=== PATIENT | male | born 1960 | race Caucasian/White ===

== ENCOUNTER 2018-11-13 12:22 | Emergency (ER) | payer BC ==
[2018-11-13] MEDS ORDERED: Bupivacaine 0.5% W/EPI SDV* 30 ML VIAL INJ ONE (14:01)
[2018-11-13] MEDS ORDERED: Lidocaine 2% EPI 1:200000 MPF* 10 ML VIAL INJ ONE (14:01)
[2018-11-13] MEDS ORDERED: Lidocaine 2% EPI 1:200000 MPF*10-20 ML VIAL ONE (14:03)
--- NOTE | 2018-11-13 14:09 | ED ---
Laceration/Wound HPI - HPI Summary HPI Summary: This patient is a 58 year old M presenting to [facility] accompanied by a woman with a chief complaint of laceration to the right middle finger with a table saw since just [employer]. The bleeding was controlled upon entrance to the ED. His last tetanus was last year. The patient states that he is in little pain with it wrapped on his hand, 3/10 in severity. - History of Current Complaint Stated Complaint: RT MID FINGER LACERATION Time Seen by Provider: 11/13/18 13:58 Hx Obtained From: Patient Onset/Duration: Sudden Onset Onset Severity: Moderate Current Severity: Mild Pain Intensity: 3 Pain Scale Used: 0-10 Numeric - Allergy/Home Medications Allergies/Adverse Reactions: Allergies Allergy/AdvReac Type Severity Reaction Status Date / Time Adhesive Tape Allergy Rash Verified 08/29/16 08:48 SEASONAL ALLERGY Allergy ITCHY Uncoded 08/29/16 08:48 WATERY EYES, PMH/Surg Hx/FS Hx/Imm Hx Endocrine/Hematology History: Reports: Hx Thyroid Disease - HYPOTHYROIDISM Denies: Hx Diabetes Cardiovascular History: Reports: Hx Hypertension - CONTROL WITH MEDS, Other Cardiovascular Problems/Disorders - CHOLESTEROL CONTROL WITH MEDS Denies: Hx Pacemaker/ICD Respiratory History: Reports: Hx Asthma - PRN INHALER Denies: Hx Chronic Obstructive Pulmonary Disease (COPD) GI History: Denies: Hx Ulcer History: Denies: Hx Renal Disease Musculoskeletal History: Reports: Hx Arthritis - GENERALIZED Sensory History: Reports: Hx Contacts or Glasses - GLASSES Denies: Hx Hearing Aid Opthamlomology History: Reports: Hx Contacts or Glasses - GLASSES Psychiatric History: Denies: Hx Panic Disorder - Surgical History Surgery Procedure, Year, and Place: 1976 APPENDECTOMY, [facility]. 1994 SINUS POLYPS REMOVED, [facility]. 1999 RIGHT KNEE ARTHROSCOPIC SURGERY REPAIR TORN MENISCUS , [facility]. VASECTOMY, OFFICE. 2013 COLONOSCOPY, [facility] Hx Anesthesia Reactions: No Infectious Disease History: No Infectious Disease History: Denies: Hx Clostridium Difficile, Hx Hepatitis, Hx Human Immunodeficiency Virus (HIV), Hx of Known/Suspected MRSA, Hx Shingles, Hx Tuberculosis, Traveled Outside the in Last 30 Days - Family History Known Family History: Positive: Non-Contributory - Social History Alcohol Use: Weekly Alcohol Amount: 6 PACK Substance Use Type: Reports: None Smoking Status (MU): Former Smoker Type: Cigarettes Amount Used/How Often: 1 PPD FOR APPROX 20 YEARS Length of Time of Smoking/Using Tobacco: 20 Have You Smoked in the Last Year: No Review of Systems Positive: Other - pain in the right hand from laceration Positive: Other - laceration on the right hand All Other Systems Reviewed And Are Negative: Yes Physical Exam - Summary Physical Exam Summary: Appearance: Well-appearing, Well-nourished, lying in bed comfortably Skin: Warm, dry, no obvious rash. Laceration on the right middle finger, partial evulsion of the fingertip. Eyes: sclera anicteric, no conjunctival pallor ENT: mucous membranes moist, pharynx appears normal Neck: Supple, nontender Respiratory: Clear to auscultation, no signs of respiratory distress Cardiovascular: Normal S1, S2. No murmurs. Normal distal pulses in tibial and radial bilaterally. Abdomen: Soft, nontender, normal active bowel sounds present Musculoskeletal: Normal, Strength/ROM Intact Neurological: A&Ox3, awake and alert, mentation is normal, speech is fluent and appropriate Psychiatric: affect is normal, does not appear anxious or depressed Triage Information Reviewed: Yes Vital Signs On Initial Exam: Initial Vitals Temp Pulse Resp BP Pulse Ox 98.1 F 85 18 146/93 96 11/13/18 12:30 11/13/18 12:30 11/13/18 12:30 11/13/18 12:30 11/13/18 12:30 Vital Signs Reviewed: Yes Procedures - Laceration/Wound Repair 1 Location: upper extremity - right hand, middle finger Length, Depth and Shape: digital block, 2+ dressing with zeroform Debridement: minimal Diagnostics - Vital Signs Vital Signs Temp Pulse Resp BP Pulse Ox 11/13/18 12:30 98.1 F 85 18 146/93 96 - Laboratory Lab Statement: Any lab studies that have been ordered have been reviewed, and results considered in the medical decision making process. 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 The bleeding was controlled upon entrance to the ED. His last tetanus was last year. The patient states that he is in little pain with it wrapped on his hand, 3/10 in severity. - Clinical Impression Provider Diagnoses: Traumatic amputation of fingertip Discharge - Sign-Out/Discharge Documenting (check all that apply): Patient Departure - discharge - Discharge Plan Condition: Good Disposition: HOME Patient Education Materials: Finger Amputation (ED) Referrals: Sunil Sarkar, HOME ORGANIZER [Primary Care Provider] - Additional Instructions: This wound should heal quite well over the next few weeks. Keep a dressing on it for the next few days to a week until it is safely scabbed over. Watch for signs of infection (increasing pain, redness, swelling, drainage) and come back here if that happens. - Billing Disposition and Condition Condition: GOOD Disposition: Home - Attestation Statements Document Initiated by Deliaibe: Yes Documenting Scribe: Tyler Zhao Provider For Whom Aakash is Documenting (Include Credential): Jorge Loja MD Scribe Attestation: Tyler Cheung, serinaed for Jorge Loja MD on 11/14/18 at 1819. Scribe Documentation Reviewed: Yes Provider Attestation: The documentation as recorded by the Tyler padron accurately reflects the service I personally performed and the decisions made by me, Jorge Loja MD Status of Scribe Document: Viewed
[2018-11-13 14:46] VITALS: BP 145/96
== END 2018-11-13 14:45 | disposition home or self-care (01) ==
LOC: ED 12:22
DX: S68.112A Complete traumatic metacarpophalangeal amputation of right middle finger, initial encounter (principal); Z87.891 Personal history of nicotine dependence; W31.2XXA Contact with powered woodworking and forming machines, initial encounter; Y92.9 Unspecified place or not applicable; E03.9 Hypothyroidism, unspecified; I10 Essential (primary) hypertension; J45.909 Unspecified asthma, uncomplicated
CPT/HCPCS: 99281

== ENCOUNTER 2020-11-20 19:25 | Inpatient (IN) ==
[2020-11-20] MEDS ORDERED: Pantoprazole VIAL 40 MG VIAL IV ONE (20:05)
[2020-11-20] MEDS ORDERED: NS 0.9% 1000 ml BAG 1,000 ML IV ONE (20:06)
[2020-11-20] MEDS: Al Hydrox/Mg Hydrox/Simet LIQ 30 ML UDC PO ONE ×2 (20:53→20:54)
[2020-11-20 21:26] LABS: ABS Lymphocytes 0.4 10^3/ul (1.0-4.8); ABS Monocytes 0.7 10^3/ul (0-0.8); ABS Neutrophils 4.7 10^3/ul (1.5-7.7); Hematocrit 47 % (42-52); Hemoglobin 16.4 g/dL (14.0-18.0); Lymphocyte % 7.3 %; Mean Corpuscular HGB Conc 35 g/dL (31-36); Mean Corpuscular Hemoglobin 32 pg (27-31); Mean Corpuscular Volume 92 fL (80-94); Mean Platelet Volume 8.2 fL (7.4-10.4); Platelet Count 182 10^3/uL (150-450); Red Blood Count 5.15 10^6 /uL (4.18-5.48); Red Cell Distribution Width 13 % (10-15); White Blood Count 5.8 10^3/uL (3.5-10.8)
[2020-11-20 21:42] LABS: Influenza A Molecular Negative (Negative); Influenza B Molecular Negative (Negative)
[2020-11-20 21:42] LABS: ALT 90 U/L (7-52); AST 67 U/L (13-39); Albumin/Globulin Ratio 1.3 (1-3); Alkaline Phosphatase 64 U/L (34-104); Anion Gap 10 mmol/L (2-11); BUN/Creatinine Ratio 12.5 (8-20); Blood Urea Nitrogen 14 mg/dL (6-24); C Reactive Protein 35.78 mg/L (<8.01); CO2 Carbon Dioxide 30 mmol/L (22-32); Calcium 8.5 mg/dL (8.6-10.3); Chloride 94 mmol/L (101-111); EGFR African American 81.2 (>60); EGFR Non-African American 67.1 (>60); Globulin 3.1 g/dL (2-4); Glucose 136 mg/dL (70-100); Potassium 3.5 mmol/L (3.5-5.0); Sodium 134 mmol/L (135-145); Total Protein 7.1 g/dL (6.4-8.9); Troponin I 0.01 ng/mL (<0.03)
[2020-11-20 21:58] LABS: Activated Partial Thrombo Time 30.4 seconds (26.0-38.0); INR 1.2 (0.82-1.09)
[2020-11-20 22:22] LABS: Ferritin > 1500.0 ng/mL (24-336)
[2020-11-20] MEDS ORDERED: Iohexol 350 (CONTRAST) 500 ML MDV IV ONE (22:30)
[2020-11-21] MEDS ORDERED: Ondansetron 4 mg VIAL 2 MG/ML 2 ml VIAL IV PRN (00:27)
[2020-11-21] MEDS ORDERED: Remdesivir 100 mg Vial 200 MG in NS 0.9% 250 ml 210 ML IV ONE (00:27)
[2020-11-21] MEDS ORDERED: Albuterol HFA INHALER 8 gm MDI INH PRN (00:30)
[2020-11-21 03:20] LABS: Calcium 7.9 mg/dL (8.6-10.3); Potassium 3.4 mmol/L (3.5-5.0)
[2020-11-21 03:25] LABS: BUN/Creatinine Ratio 14.4 (8-20); EGFR African American 95.9 (>60); EGFR Non-African American 79.2 (>60)
[2020-11-21 03:32] LABS: Urine Appearance Clear; Urine Bilirubin Negative (Negative); Urine Blood Negative (Negative); Urine Color Yellow; Urine Glucose Negative (Negative); Urine Ketones Trace (Negative); Urine Nitrite Negative (Negative); Urine Protein Negative (Negative); Urine Specific Gravity 1.041 (1.010-1.030); Urine Urobilinogen Negative (Negative)
[2020-11-21] MEDS: Enoxaparin 40 MG/0.4 ML SYR SUBCUT SCH ×3 (05:42→17:49)
[2020-11-21 06:14] LABS: ABS Lymphocytes 0.4 10^3/ul (1.0-4.8); ABS Monocytes 0.2 10^3/ul (0-0.8); ABS Neutrophils 2.9 10^3/ul (1.5-7.7); Hematocrit 45 % (42-52); Hemoglobin 15.7 g/dL (14.0-18.0); Lymphocyte % 10.7 %; Mean Corpuscular HGB Conc 35 g/dL (31-36); Mean Corpuscular Hemoglobin 32 pg (27-31); Mean Corpuscular Volume 91 fL (80-94); Mean Platelet Volume 8.1 fL (7.4-10.4); Nucleated Red Blood Cells % 0.2; Platelet Count 183 10^3/uL (150-450); Red Blood Count 4.93 10^6 /uL (4.18-5.48); Red Cell Distribution Width 13 % (10-15); White Blood Count 3.5 10^3/uL (3.5-10.8)
[2020-11-21 06:31] LABS: INR 1.16 (0.82-1.09)
[2020-11-21 11:05] LABS: Magnesium 1.9 mg/dL (1.9-2.7)
[2020-11-21] MEDS ORDERED: Diphenoxylat/Atrop 2.5-0.025mg TAB PO ONE (14:35)
[2020-11-21] MEDS: Mometasone 220 MCG MDI INH SCH (19:11)
[2020-11-22] MEDS: Enoxaparin 40 MG/0.4 ML SYR SUBCUT SCH ×2 (05:46→17:45)
[2020-11-22 07:11] LABS: ABS Lymphocytes 0.6 10^3/ul (1.0-4.8); ABS Neutrophils 9.2 10^3/ul (1.5-7.7); Hematocrit 44 % (42-52); Lymphocyte % 5.4 %; Mean Corpuscular HGB Conc 34 g/dL (31-36); Mean Corpuscular Hemoglobin 32 pg (27-31); Mean Corpuscular Volume 92 fL (80-94); Mean Platelet Volume 8.2 fL (7.4-10.4); Platelet Count 235 10^3/uL (150-450); Red Blood Count 4.75 10^6 /uL (4.18-5.48); Red Cell Distribution Width 13 % (10-15); White Blood Count 10.8 10^3/uL (3.5-10.8)
[2020-11-22 08:29] LABS: Calcium 8.3 mg/dL (8.6-10.3); EGFR African American 104.5 (>60); EGFR Non-African American 86.4 (>60); Potassium 3.6 mmol/L (3.5-5.0)
[2020-11-22] MEDS: Remdesivir 100 mg Vial 100 MG in NS 0.9% 250 ml 230 ML IV SCH (09:53)
[2020-11-22] MEDS ORDERED: Cholecalciferol (VIT D3) 1,000 unit TAB PO ONE (11:36)
[2020-11-22 14:39] LABS: C Reactive Protein 13.15 mg/L (<8.01)
[2020-11-22] MEDS: Mometasone 220 MCG MDI INH SCH (19:51)
[2020-11-23] MEDS: Enoxaparin 40 MG/0.4 ML SYR SUBCUT SCH ×2 (06:31→18:27)
[2020-11-23 07:12] LABS: ABS Lymphocytes 0.5 10^3/ul (1.0-4.8); ABS Monocytes 0.9 10^3/ul (0-0.8); ABS Neutrophils 7.5 10^3/ul (1.5-7.7); Hematocrit 40 % (42-52); Hemoglobin 13.6 g/dL (14.0-18.0); Lymphocyte % 6.1 %; Mean Corpuscular HGB Conc 34 g/dL (31-36); Mean Corpuscular Hemoglobin 31 pg (27-31); Mean Corpuscular Volume 92 fL (80-94); Mean Platelet Volume 8.1 fL (7.4-10.4); Platelet Count 253 10^3/uL (150-450); Red Blood Count 4.35 10^6 /uL (4.18-5.48); Red Cell Distribution Width 13 % (10-15)
[2020-11-23 07:30] LABS: Albumin 3.3 g/dL (3.2-5.2); Albumin/Globulin Ratio 1.4 (1-3); BUN/Creatinine Ratio 21.5 (8-20); C Reactive Protein 6.06 mg/L (<8.01); EGFR African American 100.6 (>60); EGFR Non-African American 83.2 (>60); Globulin 2.4 g/dL (2-4); Potassium 3.7 mmol/L (3.5-5.0); Total Bilirubin 0.6 mg/dL (0.2-1.0); Total Protein 5.7 g/dL (6.4-8.9)
[2020-11-23] MEDS: Cholecalciferol (VIT D3) 1,000 unit TAB PO SCH (09:43)
[2020-11-23] MEDS: Remdesivir 100 mg Vial 100 MG in NS 0.9% 250 ml 230 ML IV SCH (10:03)
[2020-11-23] MEDS: Mometasone 220 MCG MDI INH SCH (22:15)
[2020-11-24] MEDS: Enoxaparin 40 MG/0.4 ML SYR SUBCUT SCH (06:21)
[2020-11-24 06:35] LABS: ABS Lymphocytes 0.7 10^3/ul (1.0-4.8); ABS Monocytes 0.9 10^3/ul (0-0.8); ABS Neutrophils 9.1 10^3/ul (1.5-7.7); Hematocrit 39 % (42-52); Hemoglobin 13.8 g/dL (14.0-18.0); Lymphocyte % 6.1 %; Mean Corpuscular HGB Conc 35 g/dL (31-36); Mean Corpuscular Hemoglobin 32 pg (27-31); Mean Corpuscular Volume 91 fL (80-94); Mean Platelet Volume 8.1 fL (7.4-10.4); Platelet Count 277 10^3/uL (150-450); Red Blood Count 4.33 10^6 /uL (4.18-5.48); Red Cell Distribution Width 13 % (10-15); White Blood Count 10.7 10^3/uL (3.5-10.8)
[2020-11-24 06:53] LABS: Albumin 3.2 g/dL (3.2-5.2); Albumin/Globulin Ratio 1.3 (1-3); BUN/Creatinine Ratio 21.7 (8-20); Calcium 8.1 mg/dL (8.6-10.3); EGFR Non-African American 117.4 (>60); Globulin 2.4 g/dL (2-4); Potassium 3.3 mmol/L (3.5-5.0); Total Bilirubin 0.7 mg/dL (0.2-1.0); Total Protein 5.6 g/dL (6.4-8.9)
[2020-11-24] MEDS: Cholecalciferol (VIT D3) 1,000 unit TAB PO SCH (08:11)
[2020-11-24] MEDS ORDERED: Potassium Chlor 20 meq TAB.ER PO ONE (08:33)
[2020-11-24 08:54] LABS: Magnesium 2.2 mg/dL (1.9-2.7)
[2020-11-24] MEDS: Remdesivir 100 mg Vial 100 MG in NS 0.9% 250 ml 230 ML IV SCH (09:15)
[2020-11-24 11:55] VITALS: BP 121/63
== END 2020-11-24 16:00 | disposition home or self-care (01) ==
LOC: ED 19:25 → MED 11-21 00:24
PROVIDERS: ADMIT Internal Medicine; ATTEND Internal Medicine